=== PATIENT | male | born 1965 | race Caucasian/White ===

== ENCOUNTER 2017-02-16 06:43 | Emergency (ER) | payer OTHER | END 2017-02-16 08:23 | disposition home or self-care (01) | LOC: FTE 06:43 | DX: J10.1 Influenza due to other identified influenza virus with other respiratory manifestations (principal); E11.9 Type 2 diabetes mellitus without complications; I25.10 Atherosclerotic heart disease of native coronary artery without angina pectoris; I10 Essential (primary) hypertension; Z79.4 Long term (current) use of insulin; Z98.61 Coronary angioplasty status; Z79.82 Long term (current) use of aspirin | CPT/HCPCS: 71046; 87400; 99284-25 ==